=== PATIENT | male | born 1970 | race Caucasian/White ===

== ENCOUNTER 2020-08-10 14:34 | Emergency (ER) | payer BC ==
[~2020-08-10] VITALS: Ht 177.8 cm; Wt 125.0 kg
[~2020-08-10 14:34] MED LIST: CEPH500C5 PO; EMOL200L TP
[2020-08-10] MEDS ORDERED: ibuprofen tablet 400 MG TABLET PO ONE (15:00)
[2020-08-10] MEDS ORDERED: acetaminophen 325mg tablet PO ONE (15:00)
[2020-08-10] MEDS ORDERED: CYCL-1 PO (15:00)
[2020-08-10] MEDS ORDERED: cyclobenzaprine 10mg tablet PO ONE (15:00)
[2020-08-10] MEDS ORDERED: ibuprofen 200mg tablet PO ONE (15:05)
== END 2020-08-10 15:11 | disposition home or self-care (01) ==
LOC: ER 14:34
DX: M54.5 Low back pain (principal); R05 Cough; Z79.2 Long term (current) use of antibiotics; Z79.899 Other long term (current) drug therapy
CPT/HCPCS: 99284

== ENCOUNTER → 2021-02-19 | Emergency (ER) | payer BC ==
[~2021-02-19] VITALS: Ht 177.8 cm; Wt 118.0 kg
[~2021-02-19] MED LIST changes: +CEPH-585 PO; -CEPH500C5 PO; +CYCL-1 PO; +DOXY100C43 PO
[2021-02-19 10:44] VITALS: BP 158/102
== END | disposition home or self-care (01) ==
LOC: ER 10:02
DX: L03.116 Cellulitis of left lower limb (principal); I87.2 Venous insufficiency (chronic) (peripheral); L97.921 Non-pressure chronic ulcer of unspecified part of left lower leg limited to breakdown of skin; Z91.040 Latex allergy status; Z79.899 Other long term (current) drug therapy
CPT/HCPCS: 93971; 99284